=== PATIENT | female | born 2000 | race Hispanic/Latino ===

== ENCOUNTER 2022-06-07 20:39 | Emergency (ER) | payer OTHER ==
--- OUTSIDE RECORDS SUMMARY | 2022-06-07 20:43 | XMS REPORT | Continuity of Care Document ---
:2000 Author Organization [facility] t Address [address] [place] [address] Care Team Providers Name Role Phone LEN MARCELO Primary Care Physician Unavailable MICKEY SHEN Attending Clinician Unavailable DOTTY GARCIA Attending Clinician Unavailable Dotty Rinaldi Attending Clinician [phone] [facility] Attending Clinician Unavailable Martin Mesa DO Attending Clinician Madelaine Pickett Attending Clinician MADELAINE DANIELS Attending Clinician Unavailable 1, [facility] Room Attending Clinician Unavailable AUTUMN BURT Attending Clinician Unavailable Wali, Ricky Herman [facility] Attending Clinician Unavailable Autumn Burt MD Attending Clinician [phone] [facility] [place] Attending Clinician Unavailable NATE RENDON Attending Clinician Unavailable NATE RENDON Attending Clinician Unavailable JulietaNate mosher DO Attending Clinician EUGENIA RAGLAND Attending Clinician Unavailable MALIK MARTINEZ Attending Clinician Unavailable DEVON FONTANA Attending Clinician Unavailable DEVON FONTANA Attending Clinician Unavailable MERY_SELIN Attending Clinician Unavailable TREVIN BARR Attending Clinician Unavailable DEIRDRE TALBOT Attending Clinician Unavailable GKervin Attending Clinician Unavailable COOPER RODRIGUEZ Attending Clinician Unavailable WANDA ARORA Attending Clinician Unavailable LEXIE MEYER Attending Clinician Unavailable PATEL_SELIN Admitting Clinician Unavailable Rick_Pappanelli Admitting Clinician Unavailable Payers Payer Name Policy Type Policy Number Effective Date Expiration Date Nelli piña [place] [employer] [id number] 2022 00:00:00 [facility] [id number] 2016 CHILDREN'S STAR 00:00:00 (MEDICAID HMO) Problems Condition Condition Condition Status Onset Resolution Last Treating Co mments Source Name Details Category Date Date Treatment Clinician Date Obesity in Obesity in Disease Active 2021-05 U nivers 2-16 ity of 00:00: [address] Branch Supervisio Supervisio Disease Active 2021-05 U nivedelmira n of n of 0-31 ity of high-risk high-risk 00:[place]: [place] [facility] History of History of Disease Active 2021-05 U nivers miscarriag miscarriag it y of e e 00:00: [place] [facility] History of History of Disease Active 2021-05 U nivers asthma asthma ity of 00:00: [place] [facility] History of History of Disease Active 2021-05 Overview : Univers Cornelius de Cornelius de Formattin i ty of la la 00:00: g of this [place] Tourette's Tourette's 00 note Me dical syndrome syndrome might be Bran ch different from the original. Not on meds History of History of Disease Active 2021-05 Overview : Univers migraine migraine Formattin ity of 00:00: g of this [place] note Medical might be Branch different from the original. Not on meds History of History of Disease Active 2021-05 Overview : Univers anxiety anxiety Formattin ity o f 00:00: g of this [place] note Medical might be Branch different from the original. Not on meds History of History of Disease Active 2021-05 Overview : Univers depression depression Formattin ity of 00:00: g of this [place] note Medical might be Branch different from the original. 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 [facility] Asthma Asthma Problem Active [place] 2-03 da [facility] Attention Attention Problem Active [place] deficit Deficit 1-25 da hyperactiv Hyperactiv 00:00: [facility] ity 00 al disorder Disorder Health Outre[facility] Mixed Mixed Problem Active [place] anxiety Anxiety 8-10 da and and 00:00: [facility] depressive Depressive 00 al disorder Disorder Health Outreac [facility] Program Swelling, Swelling, Disease Active Uni vers mass, or mass, or 3-20 ity of lump in lump in 00:00: [place] head and head and 00 Medica l neck neck Branch Allergies, Adverse Reactions, Alerts Allergy Allergy Status Severity Reaction(s) Onset Inactive Treating Comm ents Source Name Type Date Date Clinician ASPIRIN DRUG Active High Other-Cmnt Unive rs INGREDI 5- ity of 00:00: [place] 00 Medical Branch PENICILL DRUG Active Med ITCHING Univers IN INGREDI 09-28 ity of 00:00: [place] 00 Medical Branch Aspirin Propensi Active Other - See Family is Univers ty to comments 09-28 highly ity of adverse 00:00: allergic [place] reaction 00 Medical s Branch Penicill Propensi Active Itching Unive rs in ty to 09-28 ity of adverse 00:00: [place] reaction Medical s Branch LATEX DRUG Active Rash Univers INGREDI 08-27 ity of 00:00: [place] 00 Medical Branch Latex Propensi Active Rash UNKNOWN-- Unive rs ty to 08-27 (mother ity of adverse 00:00: has [place] reaction 00 history Medical s of latex Branch allergy and is concerned about child) AMOXICIL DRUG Active ITCHING Univers TONIE INGREDI 3-20 ity of 00:00: [place] 00 Medical Branch AMOXICIL DRUG Active ITCHING Univers TONIE-POT 3-20 ity of CLAVULAN 00:00: [place] ATE 00 Medical Branch Amoxicil Propensi Active Itching Unive rs tonie ty to 3-20 ity of adverse 00:00: [place] reaction 00 Medical s Branch Amoxicil Propensi Active Itching Unive rs tonie-Pot ty to 3-20 ity of Clavulan adverse 00:00: [place] ate reaction 00 Medical s Branch Social History Social Habit Start Date Stop Date Quantity Comments Source ASSERTION 2022-02-19 [place] of 00:00:00 [facility] Branch Exposure to 2022-05-02 2022-05-12 Not sure [facility] SARS-CoV-2 00:00:00 14:57:00 [place] [facility] (event) Branch Alcohol intake 2022-05-12 2022-05-12 Ex-drinker [facility] 00:00:00 00:00:00 (finding) [facility] Tobacco use and 2020-09-28 2020-09-28 Smokeless tobacco Un iversity of exposure 00:00:00 00:00:00 non-user [facility] Sex Assigned At [birth year] Universit y of 00:00:00 00:00:00 [facility] Smoking Status Start Date Stop Date Source Never smoked tobacco [facility] Medications Ordered Filled Start Stop Current Ordering Indication Dosage Frequency Signature Comments Components Source Medication Medication Date Date Medication? Clinician (SIG) Name Name SarahAlisa 2021-05 Yes [id number] 25mg Take 1 Univers e 25 mg 1-21 tablet by ity of tablet 00:00: mouth [place] 00 every 6 Medical (six) Branch hours as needed for Nausea and Vomiting (N/V). budesonide- 2021-05 Yes [id number] 2 puffs q Univers formoteroL 1-21 103 20 minutes ity of 80-4.5 00:00: for acute [place] mcg/actuati 00 exacerbati Me dical on inhaler on for max Bra nch of 6 puffs; seek medical care if no improvemen t in symptoms albuterol 2021-05 Yes [id number] 2{puff} Inhale 2 Univers 90 1-21 103 Puffs ity of mcg/actuati 00:00: every 6 [place] as on inhaler 00 (six) Medical hours as Branch needed for Wheezing or Shortness of Breath. proMETHazin 2021-05 Yes [id number] 25mg Take 1 Univers e 25 mg 1-21 tablet by ity of tablet 00:00: mouth [place] 00 every 6 Medical (six) Branch hours as needed for Nausea and Vomiting (N/V). budesonide- 2021-05 Yes [id number] 2 puffs q Univers formoteroL 1-21 103 20 minutes ity of 80-4.5 00:00: for acute [place] mcg/actuati 00 exacerbati Me dical on inhaler on for max Bra nch of 6 puffs; seek medical care if no improvemen t in symptoms albuterol 2021-05 Yes [id number] 2{puff} Inhale 2 Univers 90 1-21 103 Puffs ity of mcg/actuati 00:00: every 6 [place] as on inhaler 00 (six) Medical hours as Branch needed for Wheezing or Shortness of Breath. proMETHazin 2021-05 Yes [id number] 25mg Take 1 Univers e 25 mg 1-21 tablet by ity of tablet 00:00: mouth [place] 00 every 6 Medical (six) Branch hours as needed for Nausea and Vomiting (N/V). budesonide- 2021-05 Yes [id number] 2 puffs q Univers formoteroL 1-21 103 20 minutes ity of 80-4.5 00:00: for acute [place] mcg/actuati 00 exacerbati Me dical on inhaler on for max Bra nch of 6 puffs; seek medical care if no improvemen t in symptoms albuterol 2021-05 Yes [id number] 2{puff} Inhale 2 Univers 90 1-21 103 Puffs ity of mcg/actuati 00:00: every 6 [place] as on inhaler 00 (six) Medical hours as Branch needed for Wheezing or Shortness of Breath. proMETHazin 2021-05 Yes [id number] 25mg Take 1 Univers e 25 mg 1-21 tablet by ity of tablet 00:00: mouth [place] 00 every 6 Medical (six) Branch hours as needed for Nausea and Vomiting (N/V). budesonide- 2021-05 Yes [id number] 2 puffs q Univers formoteroL 1-21 103 20 minutes ity of 80-4.5 00:00: for acute [place] mcg/actuati 00 exacerbati Me dical on inhaler on for max Bra nch of 6 puffs; seek medical care if no improvemen t in symptoms albuterol 2021-05 Yes [id number] 2{puff} Inhale 2 Univers 90 1-21 103 Puffs ity of mcg/actuati 00:00: every 6 [place] as on inhaler 00 (six) Medical hours as Branch needed for Wheezing or Shortness of Breath. proMETHazin 2021-05 Yes [id number] 25mg Take 1 Univers e 25 mg 1-21 tablet by ity of tablet 00:00: mouth [place] 00 every 6 Medical (six) Branch hours as needed for Nausea and Vomiting (N/V). budesonide- 2021-05 Yes [id number] 2 puffs q Univers formoteroL 1-21 103 20 minutes ity of 80-4.5 00:00: for acute [place] mcg/actuati 00 exacerbati Me dical on inhaler on for max Bra nch of 6 puffs; seek medical care if no improvemen t in symptoms albuterol 2021-05 Yes [id number] 2{puff} Inhale 2 Univers 90 1-21 103 Puffs ity of mcg/actuati 00:00: every 6 [place] as on inhaler 00 (six) Medical hours as Branch needed for Wheezing or Shortness of Breath. proMETHazin 2021-05 Yes [id number] 25mg Take 1 Univers e 25 mg 1-21 tablet by ity of tablet 00:00: mouth [place] 00 every 6 Medical (six) Branch hours as needed for Nausea and Vomiting (N/V). budesonide- 2021-05 Yes [id number] 2 puffs q Univers formoteroL 1-21 103 20 minutes ity of 80-4.5 00:00: for acute [place] mcg/actuati 00 exacerbati Me dical on inhaler on for max Bra nch of 6 puffs; seek medical care if no improvemen t in symptoms albuterol 2021-05 Yes [id number] 2{puff} Inhale 2 Univers 90 1-21 103 Puffs ity of mcg/actuati 00:00: every 6 [place] as on inhaler 00 (six) Medical hours as Branch needed for Wheezing or Shortness of Breath. proMETHazin 2021-05 Yes [id number] 25mg Take 1 Univers e 25 mg 1-21 tablet by ity of tablet 00:00: mouth [place] 00 every 6 Medical (six) Branch hours as needed for Nausea and Vomiting (N/V). budesonide- 2021-05 Yes [id number] 2 puffs q Univers formoteroL 1-21 103 20 minutes ity of 80-4.5 00:00: for acute [place] mcg/actuati 00 exacerbati Me dical on inhaler on for max Bra nch of 6 puffs; seek medical care if no improvemen t in symptoms albuterol 2021-05 Yes [id number] 2{puff} Inhale 2 Univers 90 1-21 103 Puffs ity of mcg/actuati 00:00: every 6 [place] as on inhaler 00 (six) Medical hours as Branch needed for Wheezing or Shortness of Breath. proMETHazin 2021-05 Yes [id number] 25mg Take 1 Univers e 25 mg 1-21 tablet by ity of tablet 00:00: mouth [place] 00 every 6 Medical (six) Branch hours as needed for Nausea and Vomiting (N/V). budesonide- 2021-05 Yes [id number] 2 puffs q Univers formoteroL 1-21 103 20 minutes ity of 80-4.5 00:00: for acute [place] mcg/actuati 00 exacerbati Me dical on inhaler on for max Bra nch of 6 puffs; seek medical care if no improvemen t in symptoms albuterol 2021-05 Yes [id number] 2{puff} Inhale 2 Univers 90 1-21 103 Puffs ity of mcg/actuati 00:00: every 6 [place] as on inhaler 00 (six) Medical hours as Branch needed for Wheezing or Shortness of Breath. GUMMI BEAR 2021-05- No Take by Uni vers MULTIVITAMI 0-31 10-31 mouth. ity o f N ORAL 14:57: 00:00 [place] 48 :00 Medical Branch GUMMI BEAR 2021-05- No Take by Uni vers MULTIVITAMI 0-31 10-31 mouth. ity o f N ORAL 14:57: 00:00 [place] 48 :00 Medical Branch GUMMI BEAR 2021-05- No Take by Uni vers MULTIVITAMI 0-31 10-31 mouth. ity o f N ORAL 14:57: 00:00 [place] 48 :00 Medical Branch GUMMI BEAR 2021-05- No Take by Uni vers MULTIVITAMI 0-31 10-31 mouth. ity o f N ORAL 14:57: 00:00 [place] 48 :00 Medical Branch Guanfacine 2021-05- No Take by Uni vers (INTUNIV) 3 0-31 10-31 mouth. ity o f mg Tb24 14:57: 00:00 [place] 45 :00 Medical Branch Guanfacine 2021-05- No Take by Uni vers (INTUNIV) 3 0-31 10-31 mouth. ity o f mg Tb24 14:57: 00:00 [place] 45 :00 Medical Branch Guanfacine 2021-05- No Take by Uni vers (INTUNIV) 3 0-31 10-31 mouth. ity o f mg Tb24 14:57: 00:00 [place] 45 :00 Medical Branch Guanfacine 2021-05- No Take by Uni vers (INTUNIV) 3 0-31 10-31 mouth. ity o f mg Tb24 14:57: 00:00 [place] 45 :00 Medical Branch LACTOBAC 2021-05- No Take [address] [facility] CMB 0-31 10-31 mouth. ity of #3/FOS/PANT 14:57: 00:00 [place] ETHINE 39 :00 Medical (PROBIOTIC Branch & ACIDOPHILUS ORAL) LACTOBAC 2021-05- [facility] CMB 0-[facility] 10-31 mouth. ity of #3/FOS/PANT 14:57: 00:00 [place] ETHINE 39 :00 Medical (PROBIOTIC Branch & ACIDOPHILUS ORAL) LACTOBAC 2021-05- No Take by [facility] CMB 0-31 10-31 mouth. ity of #3/FOS/PANT 14:57: 00:00 [place] ETHINE 39 :00 Medical (PROBIOTIC Branch & ACIDOPHILUS ORAL) LACTOBAC 2021-05- No Take by [facility] CMB 0-31 10-31 mouth. ity of #3/FOS/PANT 14:57: 00:00 [place] ETHINE 39 :00 Medical (PROBIOTIC Branch & ACIDOPHILUS ORAL) dextroamphe 2021-05- No 10mg Take 10 mg Univers tamine-amph 0-31 10-31 by mouth ity of etamine 20 14:57: 00:00 [place] mg tablet 33 :00 morning. Medica l Branch dextroamphe 2021-05- No 10mg Take 10 mg Univers tamine-amph 0-31 10-31 by mouth ity of etamine 20 14:57: 00:00 [place] mg tablet 33 :00 morning. Medica l Branch dextroamphe 2021-05- No 10mg Take 10 mg Univers tamine-amph 0-31 10-31 by mouth ity of etamine 20 14:57: 00:00 [place] mg tablet 33 :00 morning. Medica l Branch dextroamphe 2021-05- No 10mg Take 10 mg Univers tamine-amph 0-31 10-31 by mouth ity of etamine 20 14:57: 00:00 [place] mg tablet 33 :00 morning. Medica l Branch albuterol 2021-05- No 2{puff} Inhale 2 Univers (PROAIR 0-31 10-31 Puffs ity of HFA) 90 14:57: 00:00 every 6 [place] mcg/actuati 05 :00 (six) Medical on inhaler hours as Branc h needed for Wheezing or Shortness of Breath. albuterol 2021-05- No 2{puff} Inhale 2 Univers (PROAIR 0-31 10-31 Puffs ity of HFA) 90 14:57: 00:00 every 6 [place] mcg/actuati 05 :00 (six) Medical on inhaler hours as Branc h needed for Wheezing or Shortness of Breath. albuterol 2021-05- No 2{puff} Inhale 2 Univers (PROAIR 0-31 10-31 Puffs ity of HFA) 90 14:57: 00:00 every 6 [place] mcg/actuati 05 :00 (six) Medical on inhaler hours as Branc h needed for Wheezing or Shortness of Breath. albuterol 2021-05- No 2{puff} Inhale 2 Univers (PROAIR 0-31 10-31 Puffs ity of HFA) 90 14:57: 00:00 every 6 [place] mcg/actuati 05 :00 (six) Medical on inhaler hours as Branc h needed for Wheezing or Shortness of Breath. PNV 67-iron 2021-05 Yes [id number] 1{each} Take 1 Univers ps-folate 0-31 Each by ity of no.1-dha 00:00: mouth [place] (VITAFOL 00 daily. Medical ULTRA) 29 Branch mg iron- 1 mg-200 mg Cap PNV 67-iron 2021-05 Yes [id number] 1{each} Take 1 Univers ps-folate 0-31 Each by ity of no.1-dha 00:00: mouth [place] (VITAFOL 00 daily. Medical ULTRA) 29 Branch mg iron- 1 mg-200 mg Cap PNV 67-iron 2021-05 Yes [id number] 1{each} Take 1 Univers ps-folate 0-31 Each by ity of no.1-dha 00:00: mouth [place] (VITAFOL 00 daily. Medical ULTRA) 29 Branch mg iron- 1 mg-200 mg Cap PNV 67-iron 2021-05 Yes [id number] 1{each} Take 1 Univers ps-folate 0-31 Each by ity of no.1-dha 00:00: mouth [place] (VITAFOL 00 daily. Medical ULTRA) 29 Branch mg iron- 1 mg-200 mg Cap PNV 67-iron 2021-05 Yes [id number] 1{each} Take 1 Univers ps-folate 0-31 Each by ity of no.1-dha 00:00: mouth [place] (VITAFOL 00 daily. Medical ULTRA) 29 Branch mg iron- 1 mg-200 mg Cap PNV 67-iron 2021-05 Yes [id number] 1{each} Take 1 Univers ps-folate 0-31 Each by ity of no.1-dha 00:00: mouth [place] (VITAFOL 00 daily. Medical ULTRA) 29 Branch mg iron- 1 mg-200 mg Cap PNV 67-iron 2021-05 Yes [id number] 1{each} Take 1 Univers ps-folate 0-31 Each by ity of no.1-dha 00:00: mouth [place] (VITAFOL 00 daily. Medical ULTRA) 29 Branch mg iron- 1 mg-200 mg Cap PNV 67-iron 2021-05 Yes [id number] 1{each} Take 1 Univers ps-folate 0-31 Each by ity of no.1-dha 00:00: mouth [place] (VITAFOL 00 daily. Medical ULTRA) 29 Branch mg iron- 1 mg-200 mg Cap PNV 67-iron 2021-05 Yes [id number] 1{each} Take 1 Univers ps-folate 0-31 Each by ity of no.1-dha 00:00: mouth [place] (VITAFOL 00 daily. Medical ULTRA) 29 Branch mg iron- 1 mg-200 mg Cap PNV 67-iron 2021-05 Yes [id number] 1{each} Take 1 Univers ps-folate 0-31 Each by ity of no.1-dha 00:00: mouth [place] (VITAFOL 00 daily. Medical ULTRA) 29 Branch mg iron- 1 mg-200 mg Cap PNV 67-iron 2021-05 Yes [id number] 1{each} Take 1 Univers ps-folate 0-31 Each by ity of no.1-dha 00:00: mouth [place] (VITAFOL 00 daily. Medical ULTRA) 29 Branch mg iron- 1 mg-200 mg Cap PNV 67-iron 2021-05 Yes [id number] 1{each} Take 1 Univers ps-folate 0-31 Each by ity of no.1-dha 00:00: mouth [place] (VITAFOL 00 daily. Medical ULTRA) 29 Branch mg iron- 1 mg-200 mg Cap PNV 67-iron 2021-05 Yes [id number] 1{each} Take 1 Univers ps-folate 0-31 Each by ity of no.1-dha 00:00: mouth [place] (VITAFOL 00 daily. Medical ULTRA) 29 Branch mg iron- 1 mg-200 mg Cap Fluticasone 2020-0 Yes 1{puff} Inhale 1 Univers -Salmeterol 5-04 Puff every it y of (ADVAIR 09:14: 12 [place] DISKUS) 01 (twelve) Medical 100-50 hours. Branch mcg/dose inhalation disk Fluticasone 2020-0 Yes 1{puff} Inhale 1 Univers -Salmeterol 5-04 Puff every it y of (ADVAIR 09:14: 12 [place] DISKUS) 01 (twelve) Medical 100-50 hours. Branch mcg/dose inhalation disk Fluticasone 2020-0 Yes 1{puff} Inhale 1 Univers -Salmeterol 5-04 Puff every it y of (ADVAIR 09:14: 12 [place] DISKUS) 01 (twelve) Medical 100-50 hours. Branch mcg/dose inhalation disk Fluticasone 2020-0 Yes 1{puff} Inhale 1 Univers -Salmeterol 5-04 Puff every it y of (ADVAIR 09:14: 12 [place] DISKUS) 01 (twelve) Medical 100-50 hours. Branch mcg/dose inhalation disk Fluticasone 2020-0 Yes 1{puff} Inhale 1 Univers -Salmeterol 5-04 Puff every it y of (ADVAIR 09:14: 12 [place] DISKUS) 01 (twelve) Medical 100-50 hours. Branch mcg/dose inhalation disk Fluticasone 2020-0 Yes 1{puff} Inhale 1 Univers -Salmeterol 5-04 Puff every it y of (ADVAIR 09:14: 12 [place] DISKUS) 01 (twelve) Medical 100-50 hours. Branch mcg/dose inhalation disk Fluticasone 2020-0 Yes 1{puff} Inhale 1 Univers -Salmeterol 5-04 Puff every it y of (ADVAIR 09:14: 12 [place] DISKUS) 01 (twelve) Medical 100-50 hours. Branch mcg/dose inhalation disk Fluticasone 1-0 Yes 1{puff} Inhale 1 Univers -Salmeterol 5-04 Puff every it y of (ADVAIR 09:14: 12 [place] DISKUS) 01 (twelve) Medical 100-50 hours. Branch mcg/dose inhalation disk Fluticasone 2020-0 Yes 1{puff} Inhale 1 Univers -Salmeterol 5-04 Puff every it y of (ADVAIR 09:14: 12 [place] DISKUS) 01 (twelve) Medical 100-50 hours. Branch mcg/dose inhalation disk Fluticasone 2020-0 Yes 1{puff} Inhale 1 Univers -Salmeterol 5-04 Puff every it y of (ADVAIR 09:14: 12 [place] DISKUS) 01 (twelve) Medical 100-50 hours. Branch mcg/dose inhalation disk Fluticasone 2020-0 Yes 1{puff} Inhale 1 Univers -Salmeterol 5-04 Puff every it y of (ADVAIR 09:14: 12 [place] DISKUS) 01 (twelve) Medical 100-50 hours. Branch mcg/dose inhalation disk Fluticasone 2020-0 Yes 1{puff} Inhale 1 Univers -Salmeterol 5-04 Puff every it y of (ADVAIR 09:14: 12 [place] DISKUS) 01 (twelve) Medical 100-50 hours. Branch mcg/dose inhalation disk Fluticasone 2020-0 Yes 1{puff} Inhale 1 Univers -Salmeterol 5-04 Puff every it y of (ADVAIR 09:14: 12 [place] DISKUS) 01 (twelve) Medical 100-50 hours. Branch mcg/dose inhalation disk Fluticasone 2020-0 Yes 1{puff} Inhale 1 Univers -Salmeterol 5-04 Puff every it y of (ADVAIR 09:14: 12 [place] DISKUS) 01 (twelve) Medical 100-50 hours. Branch mcg/dose inhalation disk GUMMI BEAR 2020-0 Yes Take by [facility] ers MULTIVITAMI 5-04 mouth. ity of N ORAL 09:14: [place] 01 Medical Branch dextroamphe 0 Yes 20mg Take 20 mg Univers tamine-amph 5-04 by mouth ity of etamine 09:11: daily. [place] (ADDERALL) 47 Medical 20 mg Branch tablet SUMAtriptan Yes [id number] 50mg Take 1 Univers 50 mg 5-04 tablet by ity of tablet 00:00: mouth as [place] 00 needed for Medical Migraine. Branch SUMAtriptan 2021- No [id number] 50mg Take 1 Univers 50 mg 5-04 10-31 tablet by ity of tablet 00:00: 00:00 mouth as [place] 00 :00 needed for Medical Migraine. Branch SUMAtriptan 2021- No [id number] 50mg Take 1 Univers 50 mg 5-04 10-31 tablet by ity of tablet 00:00: 00:00 mouth as [place] 00 :00 needed for Medical Migraine. Branch SUMAtriptan 2021- No [id number] 50mg Take 1 Univers 50 mg 5-04 10-31 tablet by ity of tablet 00:00: 00:00 mouth as [place] 00 :00 needed for Medical Migraine. Branch SUMAtriptan 2021- No [id number] 50mg Take 1 Univers 50 mg 5-04 10-31 tablet by ity of tablet 00:00: 00:00 mouth as [place] 00 :00 needed for Medical Migraine. Branch cyproheptad Yes TAKE 2 Univ ers ine 4 mg 4-13 TABLETS BY ity o f tablet 00:00: MOUTH [place] 00 EVERY DAY Medical AT BEDTIME Branch cyproheptad 2021- No TAKE 2 Uni vers ine 4 mg 4-13 10-31 TABLETS BY ity of tablet 00:00: 00:00 MOUTH [place] 00 :00 EVERY DAY Medical AT BEDTIME Branch cyproheptad 2021- No TAKE 2 Uni vers ine 4 mg 4-13 10-31 TABLETS BY ity of tablet 00:00: 00:00 MOUTH [place] 00 :00 EVERY DAY Medical AT BEDTIME Branch cyproheptad 2021- No TAKE 2 Uni vers ine 4 mg 4-13 10-31 TABLETS BY ity of tablet 00:00: 00:00 MOUTH [place] 00 :00 EVERY DAY Medical AT BEDTIME Branch cyproheptad 2021- No TAKE 2 Uni vers ine 4 mg 4-13 10-31 TABLETS BY ity of tablet 00:00: 00:00 MOUTH [place] 00 :00 EVERY DAY Medical AT BEDTIME Branch FLUoxetine Yes TAKE 1 Unive rs 10 mg 09-03 CAPSULE(S) ity of capsule 00:00: EVERY DAY [place] 00 BY ORAL Medical ROUTE WITH Branch MEALS FOR 30 DAYS. guanFACINE Yes GIVE 1 TAB U nivers 1 mg tablet 09-03 BY MOUTH 3 it y of 00:00: TIMES [place] 00 DAILY. Medical Branch FLUoxetine 2021- No TAKE 1 Univ ers 10 mg 09-03 CAPSULE(S) ity of capsule 00:00: 00:00 [place] 00 :00 BY ORAL Medical ROUTE WITH Branch MEALS FOR 30 DAYS. guanFACINE 2021- No GIVE 1 TAB Univers 1 mg tablet 09-03 BY MOUTH 3 i ty of 00:00: 00:00 TIMES [place] 00 :00 DAILY. Medical Branch FLUoxetine 2021- No TAKE 1 Univ ers 10 mg 09-03 CAPSULE(S) ity of capsule 00:00: 00:00 EVERY [place] 00 :00 BY ORAL Medical ROUTE WITH Branch MEALS FOR 30 DAYS. guanFACINE 2021- No GIVE 1 TAB Univers 1 mg tablet 09-03 BY MOUTH 3 i ty of 00:00: 00:00 TIMES [place] 00 :00 DAILY. Medical Branch FLUoxetine 2021- No TAKE 1 Univ ers 10 mg 09-03 CAPSULE(S) ity of capsule 00:00: 00:00 EVERY DAY [place] 00 :00 BY ORAL Medical ROUTE WITH Branch MEALS FOR 30 DAYS. guanFACINE 2021- No GIVE 1 TAB Univers 1 mg tablet 09-03 BY MOUTH 3 i ty of 00:00: 00:00 TIMES [place] 00 :00 DAILY. Medical Branch FLUoxetine 2021- No TAKE 1 Univ ers 10 mg 09-03 CAPSULE(S) ity of capsule 00:00: 00:00 EVERY DAY [place] 00 :00 BY ORAL Medical ROUTE WITH Branch MEALS FOR 30 DAYS. guanFACINE 2021- No GIVE 1 TAB Univers 1 mg tablet 09-03 BY MOUTH 3 i ty of 00:00: 00:00 TIMES [place] 00 :00 DAILY. Medical Branch hydrOXYzine Yes TAKE 1 Univ ers 50 mg 1-23 CAPSULE BY ity of capsule 00:00: MOUTH [place] 00 EVERYDAY Medical AT BEDTIME Branch hydrOXYzine 2021- No TAKE 1 Uni vers 50 mg 1-23 10-31 CAPSULE BY ity of capsule 00:00: 00:00 MOUTH [place] 00 :00 EVERYDAY Medical AT BEDTIME Branch hydrOXYzine 2021- No TAKE 1 Uni vers 50 mg 1-23 10-31 CAPSULE BY ity of capsule 00:00: 00:00 MOUTH [place] 00 :00 EVERYDAY Medical AT BEDTIME Branch hydrOXYzine 2021- No TAKE 1 Uni vers 50 mg 1-23 10-31 CAPSULE BY ity of capsule 00:00: 00:00 MOUTH [place] 00 :00 EVERYDAY Medical AT BEDTIME Branch hydrOXYzine 2021- No TAKE 1 Uni vers 50 mg 1-23 10-31 CAPSULE BY ity of capsule 00:00: 00:00 MOUTH [place] 00 :00 EVERYDAY Medical AT BEDTIME Branch LACTOBAC Yes Take by [facility] CMB 5-21 mouth. ity of #3/FOS/PANT 15:18: [place] ETHINE 46 Medical (PROBIOTIC Branch & ACIDOPHILUS ORAL) mometasone Yes 1{spray Use 1 Uni vers (NASONEX) 5-21 } [place] in ity of 50 15:18: each [place] mcg/actuati 45 nostril. Medi rey on nasal Branch spray mometasone Yes 1{spray Use 1 Uni vers (NASONEX) 5-21 } [place] in ity of 50 15:18: each [place] mcg/actuati 45 nostril. Medi rey on nasal Branch spray mometasone Yes 1{spray Use 1 Uni vers (NASONEX) 5-21 } [place] in ity of 50 15:18: each [place] mcg/actuati 45 nostril. Medi rey on nasal Branch spray mometasone Yes 1{spray Use 1 Uni vers (NASONEX) 5-21 } [place] in ity of 50 15:18: each [place] mcg/actuati 45 nostril. Medi rey on nasal Branch spray mometasone Yes 1{spray Use 1 Uni vers (NASONEX) 5-21 } [place] ity of 50 15:18: each [place] mcg/actuati 45 nostril. Medi rey on nasal Branch spray mometasone 2014- Yes 1{spray Use 1 Uni vers (NASONEX) 5-21 } [place] in ity of 50 15:18: each [place] mcg/actuati 45 nostril. Medi rey on nasal Branch spray mometasone 0 Yes 1{spray Use 1 Uni vers (NASONEX) 5-21 } [place] ity of 50 15:18: each [place] mcg/actuati 45 nostril. Medi rey on nasal Branch spray mometasone Yes 1{spray Use 1 Uni vers (NASONEX) 5-21 } [place] in ity of 50 15:18: each [place] mcg/actuati 45 nostril. Medi rey on nasal Branch spray mometasone Yes 1{spray Use 1 Uni vers (NASONEX) 5-21 } [place] in ity of 50 15:18: each [place] mcg/actuati 45 nostril. Medi rey on nasal Branch spray mometasone Yes 1{spray Use 1 Uni vers (NASONEX) 5-21 } [place] ity of 50 15:18: each [place] mcg/actuati 45 nostril. Medi rey on nasal Branch spray mometasone Yes 1{spray Use 1 Uni vers (NASONEX) 5-21 } [place] in ity of 50 15:18: each [place] mcg/actuati 45 nostril. Medi rey on nasal Branch spray mometasone Yes 1{spray Use 1 Uni vers (NASONEX) 5-21 } [place] in ity of 50 15:18: each [place] mcg/actuati 45 nostril. Medi rey on nasal Branch spray mometasone 0 Yes 1{spray Use 1 Uni vers (NASONEX) 5-21 } [place] in ity of 50 15:18: each [place] mcg/actuati 45 nostril. Medi rey on nasal Branch spray Guanfacine Yes Take by [facility] ers (INTUNIV) 3 5-21 mouth. ity of mg Tb24 15:18: [place] 45 Medical Branch albuterol Yes 2{puff} Inhale 2 U nivers (PROAIR 5-21 Puffs ity of HFA) 90 15:18: every 6 [place] mcg/actuati 45 (six) Medical on inhaler hours as Branc h needed for Wheezing or Shortness of Breath. mometasone 2015-0 Yes 1{spray Use 1 Uni vers (NASONEX) 5-21 } [place] in ity of 50 15:18: each [place] mcg/actuati 45 nostril. Medi rey on nasal Branch spray airial mis airial mis No airial mis [place] compact compact compact da [facility] ProAir HFA ProAir HFA No ProAir HFA [place] 90 90 90 da mcg/actuati mcg/actuati mcg/actuat [facility] on aerosol on aerosol ion al inhaler inhaler aerosol Health INHALE 2 INHALE 2 inhaler Outr eac PUFF BY PUFF BY INHALE 2 h INHALATION INHALATION PUFF BY Program ROUTE EVERY ROUTE EVERY INHALATION 4 6 HOURS 4 6 HOURS ROUTE EVERY 4 6 HOURS Prozac 20 Prozac 20 No 1capsul Q1D Prozac 20 [place] mg capsule mg capsule e(s) mg capsule da Take 1 Take 1 Take 1 [facility] capsule capsule capsule al every day every day every day Health by oral by oral by oral Outrea c route in route in route in h the morning the morning the P rogram for 30 for 30 morning days. days. for 30 days. sumatriptan sumatriptan No sumatripta [place] 50 mg 50 mg n 50 mg da tablet tablet tablet [facility] airial airial No airial [place] nebulizer nebulizer nebulizer da system system system [facility] [id number] USE [id number] USE [id number] USE al DIRECTED DIRECT[facility] Outre[facility] Program cyproheptad cyproheptad No cyprohepta [place] ine 4 mg ine 4 mg dine 4 mg da tablet TAKE tablet TAKE tablet [facility] 2 TABLETS 2 TABLETS TAKE 2 al BY MOUTH BY MOUTH TABLETS BY H ealt EVERY DAY EVERY DAY MOUTH Outr eac AT BEDTIME AT BEDTIME EVERY DAY h AT BEDTIME Program dextroamphe dextroamphe No dextroamph [place] tamine-amph tamine-amph etamine-am da etamine 10 etamine 10 phetamine [facility] mg tablet mg tablet 10 mg al TAKE 1 TAKE 1 tablet Health TABLET BY TABLET BY TAKE 1 Out reac MOUTH EVERY MOUTH EVERY TABLET BY h MORNING MORNING MOUTH Program LUNCH AND LUNCH AND EVERY 4PM 4PM MORNING LUNCH AND 4PM dextroamphe dextroamphe No dextroamph [place] tamine-amph tamine-amph etamine-am da etamine 5 etamine 5 phetamine [facility] mg tablet mg tablet 5 mg al TAKE 1 TAKE 1 tablet Health TABLET BY TABLET BY TAKE 1 Out reac MOUTH EVERY MOUTH EVERY TABLET BY h MORNING MORNING MOUTH Program LUNCH AND LUNCH AND EVERY 4PM 4PM MORNING LUNCH AND 4PM fluoxetine fluoxetine No fluoxetine [place] 10 mg 10 mg 10 mg da capsule capsule capsule [facility] TAKE 1 TAKE 1 TAKE 1 al CAPSULE(S) CAPSULE(S) CAPSULE(S) Health EVERY DAY EVERY DAY EVERY DAY Outreac BY ORAL BY ORAL BY ORAL h ROUTE WITH ROUTE WITH ROUTE WITH Program MEALS FOR MEALS FOR MEALS FOR 30 DAYS. 30 DAYS. 30 DAYS. guanfacine guanfacine No guanfacine [place] 1 mg tablet 1 mg tablet 1 mg d a GIVE 1 TAB GIVE 1 TAB tablet E [facility] BY MOUTH 3 BY MOUTH 3 GIVE 1 TAB al TIMES TIMES BY MOUTH 3 Health DAILY. DAILY. TIMES Outreac DAILY. h Program hydroxyzine hydroxyzine No hydroxyzin [place] pamoate 50 pamoate 50 e pamoate da mg capsule mg capsule 50 mg Ep [facility] TAKE 1 TAKE 1 capsule al CAPSULE BY CAPSULE BY TAKE 1 H ealth MOUTH MOUTH CAPSULE BY Outreac EVERYDAY AT EVERYDAY AT MOUTH h BEDTIME BEDTIME EVERYDAY Progr am AT BEDTIME loratadine loratadine No loratadine [place] 10 mg 10 mg 10 mg da tablet tablet tablet [facility] Vital Signs Vital Name Observation Time Observation Value Comments Source Systolic blood 2022-05-12 20:58:00 108 mm[Hg] [facility] Diastolic blood 2022-05-12 20:58:00 64 mm[Hg] [facility] Heart rate 2022-05-12 20:58:00 71 /min [facility] Body temperature 2022-05-12 20:58:00 36.61 [facility] Respiratory rate 2022-05-12 20:58:00 18 /[facility] Body height 2022-05-12 20:58:00 165.1 cm [facility] Body weight 2022-05-12 20:58:00 90.918 kg [facility] [place] [facility] BMI 2022-05-12 20:58:00 33.35 kg/m2 [facility] [place] [facility] Systolic blood 2022-04-14 22:19:00 104 mm[Hg] [facility] [place] [facility] Diastolic blood 2022-04-14 22:19:00 61 mm[Hg] Unive rsity of pressure [place] [facility] Heart rate 2022-04-14 22:19:00 75 /min [facility] [place] [facility] Body temperature 2022-04-14 22:19:00 36.61 Kimberly [facility] [place] [facility] Respiratory rate 2022-04-14 22:19:00 18 /min [facility] [place] [facility] Body height 2022-04-14 22:19:00 165.1 cm [facility] [place] [facility] Body weight 2022-04-14 22:19:00 95.397 kg [facility] [place] [facility] BMI 2022-04-14 22:19:00 35.00 kg/m2 [facility] [place] [facility] Systolic blood 2022-03-27 19:49:00 85 mm[Hg] [facility] [place] [facility] Diastolic blood 2022-03-27 19:49:00 58 mm[Hg] [facility]ive rs[facility] pressure [place] [facility] Heart rate 2022-03-27 19:49:00 73 /min [facility] [place] [facility] Body temperature 2022-03-27 19:49:00 36.56 Kimberly [facility] [place] [facility] Respiratory rate 2022-03-27 19:49:00 18 /min [facility] [place] [facility] Body height 2022-03-27 19:49:00 165.1 cm [facility] [place] [facility] Body weight 2022-03-27 19:49:00 97.183 kg [facility] [place] [facility] BMI 2022-03-27 19:49:00 35.65 kg/m2 [facility] [place] [facility] Systolic blood 2022-03-24 22:17:00 122 mm[Hg] [facility] [place] [facility] Diastolic blood 2022-03-24 22:17:00 52 mm[Hg] Unive rsity of pressure [place] [facility] Heart rate 2022-03-24 22:17:00 86 /min [facility] Body temperature 2022-03-24 22:17:00 36.94 Kimberly [facility] Res[facility] rate 2022-03-24 22:17:00 14 /min [facility] Body height 2022-03-24 22:17:00 165.1 cm [facility] Body weight 2022-03-24 22:17:00 102.059 kg [facility] BMI 2022-03-24 22:17:00 37.44 kg/m2 [facility] Oxygen saturation in 2022-03-24 22:17:00 99 /min [facility] Arterial blood by [facility] Pulse oximetry Branch BP Diastolic 2020-06-30 00:00:00 71 mm[Hg] [place] [facility] Height 2020-06-30 00:00:00 65 [in_i] [place] [facility] BMI (Body Mass 2020-06-30 00:00:00 37.3 kg/m2 [facility] 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) [facility] BP Systolic 2020-06-30 00:00:00 110 mm[Hg] [place] [facility] Body Weight 2020-06-30 00:00:00 224.2 [lb_av] [place] [facility] Procedures Procedure Date / Time Performed Performing Clinician Gracie e POCT URINALYSIS 2022-05-12 20:59:00 Dotty Garcia [facility] FIRST TRIMESTER 2022-04-28 19:58:00 Dotty Garcia [facility] POCT URINALYSIS 2022-04-14 22:27:00 Dotty Garcia [facility] POCT TEST 2022-03-27 19:42:00 Dotty Garcia [facility] POCT URINALYSIS W/O 2022-03-27 19:42:00 Dotty Garcia [facility] [place] SPECIFIC GRAVITY [facility] CONSENT/REFUSAL FOR 2022-03-24 22:11:02 Doctor Unassigned, No [facility] [place] DIAGNOSIS AND Name Medical Branch TREATMENT unlisted imaging order 2020-06-23 00:00:00 Mary marin [facility] Encounters Start End Encounter Admission Attending Care Care Encounter Source Date/Time Date/Time Type Type Clinicians Facility Department ID 2022-06-26 2022-06-26 Outpatient P [facility] [id number] Univers 14:45:00 14:45:00 ity of [facility] 2022-06-09 2022-06-09 Outpatient R RADHA, [facility] [id number] Univers 14:00:00 14:00:00 DOTTY mohser [facility] 2022-05-12 2022-05-12 Outpatient R RADHA, [facility] [id number] Univers 14:45:00 15:13:07 DOTTY mosher f [facility] 2022-05-12 2022-05-12 Routine Radha, [facility] [id number] Univers 14:45:00 15:13:07 Dotty Nascimento INSTRUCTIONAL DESIGN SPECIALIST 350.1.13.10 ity of Visit REGIONAL 4.2.7.2.686 [place] as MATERNAL [id number] [facility] & CHILD [address] [place] [address] 2022-04-28 2022-04-28 [facility] [id number]. [id number] Univers 15:00:00 15:15:00 Visit Martin Mesa INSTRUCTIONAL DESIGN SPECIALIST 350.1.13.10 ity of Madelaine Daniels REGIONAL 4.2.7.2.686 [place] MATERNAL [id number] Med ical & CHILD 125 [facility] 2022-04-28 2022-04-28 Outpatient R JEREMIAH [facility] [id number] Univers 15:00:00 15:00:00 MADELAINE menard [facility] 2022-04-28 2022-04-28 Manager Hospice 1[facility] 1.2. [id number] Univers 13:30:00 14:31:19 Visit Martin [place] INSTRUCTIONAL DESIGN SPECIALIST 350.1.13.10 ity of REGIONAL 4.2.7.2.686 [place] as MATERNAL [id number] [facility] ical & CHILD 369 [facility] 2022-04-28 2022-04-28 Outpatient P [facility] [id number] Univers 10:30:00 10:30:00 ity of [facility] 2022-04-28 2022-04-28 [facility] [id number] Univers 00:00:00 00:00:00 Dotty C INSTRUCTIONAL DESIGN SPECIALIST 350.1.13.10 ity of REGIONAL 4.2.7.2.686 [place] MATERNAL [id number] [facility] & CHILD [address] [place] [address] 2022-04-17 2022-04-17 Outpatient R LENNY [facility] [id number] Univers 09:30:00 14:48:07 RADHA it y of S, LEYVA [facility] 2022-04-17 2022-04-17 Telemedici Faculty, [facility] [id number] Univers 09:30:00 14:48:07 ne Visit Lenny Ruvalcabamango Leyva INSTRUCTIONAL DESIGN SPECIALIST 350.1 .13.10 ity of REGIONAL 4.2.7.2.686 [place] MATERNAL [id number] [address] 2022-04-14 2022-04-14 Outpatient R RADHA [facility] [id number] Univers 16:00:00 16:35:54 DOTTY ity o f [facility] 2022-04-14 2022-04-14 Routine Radha, [facility] [id number] Univers 16:00:00 16:35:54 Dotty C INSTRUCTIONAL DESIGN SPECIALIST 350.1.13.10 ity of Visit REGIONAL 4.2.7.2.686 [place] MATERNAL [id number] [facility] & CHILD [address] [place] [address] 2022-03-27 2022-03-27 [facility] [id number] Univers 15:00:00 15:42:44 DOTTY taylor o derian [facility] 2022-03-27 2022-03-27 [facility] [id number] Univers 15:00:00 15:42:44 Dotty Azam INSTRUCTIONAL DESIGN SPECIALIST 350.1.13.10 ity of [facility] 4.2.7.2.686 [place] as MATERNAL [id number] [facility] ical & CHILD [address] [place] [address] 2022-03-27 2022-03-27 Outpatient R RADHA, [facility] [id number] Univers 15:00:00 15:00:00 DOTTY mosher [facility] 2022-03-27 2022-03-27 Outpatient R RADHA, [facility] [id number] Univers 14:30:00 14:30:00 DOTTY taylor o [facility] 2022-03-24 2022-03-24 Emergency X NATE RENDON [facility] ERT 1 [id number] Univers 17:20:00 17:52:00 JULIETANATE Mosher [facility] 2022-03-24 2022-03-[address] [facility] 1.2.030.850 [id number] Univers 17:20:00 17:52:00 [facility] 350.1.13.10 ity [facility] 4.2.7.2.686 [facility] [id number] [address] 2022-03-11 2022-03-11 emergency [id number] 14:19:00 15:27:00 [id number] 2022-03-11 2022-03-11 Emergency ER RAGLAND, [facility] [id number] [place] 14:19:00 15:27:00 EUGENIA [id number] Critical access hospital 2021-11-04 2021-11-04 Emergency ER MICHELLE, [facility] [id number] [place] 21:56:00 23:40:00 KYLEJOANNA -[id number] Critical access hospital 2020-11-16 2020-11-16 Outpatient MICKEY KULKARNI [facility] [id number] Univers 10:00:00 10:00:00 [facility] 2020-09-28 2020-09-28 Outpatient DEVON MURPHY [facility] [id number] Univers 08:40:00 08:40:00 DEVON FONTANA [facility] 2020-07-02 2020-07-02 Outpatient PATEL_NILES [facility] [id number] [place] 04:33:00 04:33:00 H [id number] da [facility] 2020-07-02 2020-07-02 Pau [facility] [place] - [id number] [place] 00:00:00 00:00:00 Cristian Madden, [facility] COMMISSIONING MANAGER: 1700 [facility] [phone] Jessy angelo , Ph. ([phone]) 2020-06-30 2020-06-30 Outpatient PATEL_NILES NCHOP [facility] 109 [id number] [place] 04:12:00 04:12:00 H [id number] da [facility] 2020-06-30 2020-06-30 Deirdre [facility] [place] - [id number] [place] 00:00:00 00:00:00 Zee Bergman MD: [facility] E[facility]op [id number] [facility] - [address], [place], [place] [address] , Ph. 2020-06-29 2020-06-29 Outpatient PATEL_NILES NCHOP [facility] 109 [id number] [place] 12:00:00 12:00:00 H [id number] [facility] 2020-06-28 2020-06-28 Emergency ER TREVIN BARR [facility] [id number] [place] 08:33:00 11:09:00 -[id number] Critical access hospital 2020-06-24 2020-06-24 Outpatient SHAMA TALBOT, [facility] [id number] [place] 18:10:00 18:10:00 DEIRDRE -[id number] Critical access hospital 2020-06-24 2020-06-24 Outpatient G_Pappas MM[facility] MMG [id number] [place] 01:16:00 01:16:00 0128 Medical Group 2020-06-22 2020-06-22 Outpatient PATEL_NILES [facility] [id number] [place] 03:53:00 03:53:00 H [id number] [facility] 2020-06-19 2020-06-19 Outpatient PATEL_NILES [facility] 109 [id number] [place] 12:00:00 12:00:00 H [id number] [facility] 2020-06-19 2020-06-19 Selin Thao [place] - [id number] [place] 00:00:00 00:00:00 MD Mery: Cynthia meneses 1700 [facility] Juan Manuel [facility] [address] h , Ph. Program (390) --20072020-06-08 2020-06-08 Outpatient PATEL_NILES NCHOP [facility] 109 [id number] [place] 12:18:00 12:18:00 H [id number] [facility] 2020-06-07 2020-06-07 Outpatient PATEL_NILES NCHOP [facility] 109 [id number] [place] 05:34:00 05:34:00 H [id number] [facility] 2020-06-07 2020-06-07 Pau [place] - [id number] M [place] 00:00:00 00:00:00 Cristian Madden, [facility] COMMISSIONING MANAGER: 1700 [facility] [address] [facility] , Ph. ([phone]) --20072020-05-27 2020-05-27 Outpatient PATEL_KEZIAS [facility] [id number] [place] 09:23:00 09:23:00 H [id number] [facility] 2020-05-26 2020-05-26 Outpatient PATEL_RACHEL [facility] 109 [id number] [place] 05:00:00 05:00:00 H [id number] [facility] 2020-05-25 2020-05-25 Outpatient PATEL_RACHEL [facility] 109 [id number] [place] 03:17:00 03:17:00 H [id number] [facility] 2020-05-24 2020-05-24 Outpatient PATEL_RACHEL [facility] 109 [id number] [place] 04:11:00 04:11:00 H [id number] [facility] 2020-05-24 2020-05-24 Pau [place] - [id number] M [place] 00:00:00 00:00:00 Cristian Madden, [facility] COMMISSIONING MANAGER: 1700 [facility] [address] Jessy angelo , Ph. ([phone]) --20072020-04-10 2020-04-10 Outpatient PATEL_RACHEL [facility] [id number] [place] 12:08:00 12:08:00 H [id number] [facility] 2020-04-10 2020-04-10 Selin Thao [facility] [place] - [id number] [place] 00:00:00 00:00:00 MD Mery: Cynthia meneses 1700 [facility] Zambrano [facility] - [facility] [address] h , Ph. Program ([phone]) --20072020-02-09 2020-02-09 Outpatient PATEL_NILES [facility] [id number] [place] 05:37:00 05:37:00 H [id number] [facility] 2020-02-09 2020-02-09 Pau [place] - [id number] M [place] 00:00:00 00:00:00 Cristian Marie da Merry, [facility] COMMISSIONING MANAGER: 1700 [facility] ia [facility] [address] [facility] am , Ph. ([phone]) --20072020-02-06 2020-02-06 Outpatient PATEL_RACHEL ANNE [facility] 109 [id number] [place] 03:43:00 03:43:00 H [id number] [facility] 2020-02-06 2020-02-06 Pau [place] - [id number] M [place] 00:00:00 00:00:00 Cristian Madden, [facility] COMMISSIONING MANAGER: 1700 [facility] ia [facility]ano [facility] [address] [facility] am , Ph. ([phone]) --20072020-02-05 2020-02-05 Outpatient PATEL_RACHEL ANNE [facility] 109 [id number] [place] 03:44:00 03:44:00 H [id number] [facility] 2020-01-26 2020-01-26 Outpatient PATEL_RACHEL ANNE [facility] 109 [id number] [place] 05:55:00 05:55:00 H [id number] [facility] 2020-01-26 2020-01-26 Pau [place] - [id number] M [place] 00:00:00 00:00:00 Cristian Madden, [facility] COMMISSIONING MANAGER: 1700 [facility] [place] [address] [facility] am , Ph. ([phone]) -2020-01-24 2020-01-24 Outpatient PATEL_RACHEL ANNE [facility] 109 [id number] [place] 10:39:00 10:39:00 H [id number] [facility] 2020-01-24 2020-01-24 [facility] [place] - [id number] [place] 00:00:00 00:00:00 White, MD: Cynthia meneses 1700 [facility] Zam[place]ano [facility] [address] h , Ph. Program ([phone]) -20072020-01-12 2020-01-12 Outpatient PATEL_NILENelli LAYNEHOP MEHOP 109 [id number] [place] 04:07:00 04:07:00 H [id number] [facility] 2020-01-12 2020-01-12 Pau [place] - [id number] [place] 00:00:00 00:00:00 Cristian Madden, [facility] COMMISSIONING MANAGER: 1700 HOP - NCHOP al [place] [facility] [address] Jessy , Ph. ([phone]) --20072020-01-06 2020-01-06 Outpatient PATEL_NILES HOP N[facility]OP 109 [id number] [place] 10:57:00 10:57:00 H [id number] [facility] 2020-01-05 2020-01-05 Outpatient PATEL_RACHEL LAYNEHOP NCHOP 109 [id number] [place] 05:29:00 05:29:00 H [id number] [facility] 2020-01-05 2020-01-05 Pau [place] - [id number] [place] 00:00:00 00:00:00 Cristian Madden, [facility] COMMISSIONING MANAGER: 1700 HOP - NCHOP [facility] [address] [facility] am , Ph. ([phone]) -20072020-01-03 2020-01-03 Outpatient PATEL_NILES HOP N[facility] 109 [id number] [place] 12:12:00 12:12:00 H [id number] [facility] 2020-01-03 2020-01-03 Selin J [facility] [place] - [id number] [place] 00:00:00 00:00:00 MD Mery: Cynthia meneses 1700 [facility] [address] h , Ph. Program (643) --20072019-12-08 2019-12-08 Outpatient GIA NCFLETCHER [facility] [id number] [place] 05:56:00 05:56:00 H [id number] [facility] 2009-05-03 2009-05-03 Emergency ER COOPER RODRIGUEZ [facility] [id number] [place] 17:45:00 19:10:00 -[id number] Critical access hospital 2008-07-09 2008-07-09 Emergency ER ARAVIND-CAM [facility] [id number] [place] 08:05:00 10:01:00 RADHA, -[id number] [facility] 2003-12-29 2003-12-30 Emergency ER UGENRIQUE, [facility] [id number] [place] 19:27:00 00:30:00 CLEMENT -[id number] Critical access hospital Results Test Description Test Time Test Comments Results Result Comments Source POCT URINALYSIS W SPECIFIC GRAVITY 2022-05-12 20:59:00 Test Item Value Reference Range Interpretation Comme nts POCT U SP GRAV (test code = 3255) . 1.005-1.025 POCT PH U (test code = 3254) . 5-8 POCT U LEUK EST (test code = 3263) . Negative - Negative POCT U NIT (test code = 3262) . Negative - Negative POCT U PROT (test code = 3259) Trace Negative - Negative POCT U GLU (test code = 3256) Neg Negative - Negative POCT U KETONE (test code = 3258) . Negative - Negative POCT U UROBILI (test code = 3260) . 0.2-1 POCT U BILI (test code = 3261) . Negative - Negative POCT U BLD (test code = 3257) . Negative - Negative POCT U COLOR (test code = 3266) . POCT U APPEAR (test code = 3267) [facility] SPECIFIC [id number] 22:27:00 Test Item Value Reference Range Interpretation Comments POCT U SP GRAV (test code = 3255) . 1.005-1.025 POCT PH U (test code = 3254) . 5-8 POCT U LEUK EST (test code = 3263) . Negative - Negative POCT U NIT (test code = 3262) . Negative - Negative POCT U PROT (test code = 3259) Trace Negative - Negative POCT U GLU (test code = 3256) Neg Negative - Negative POCT U KETONE (test code = 3258) . Negative - Negative POCT U UROBILI (test code = 3260) . 0.2-1 POCT U BILI (test code = 3261) . Negative - Negative POCT U BLD (test code = 3257) . Negative - Negative POCT U COLOR (test code = 3266) . POCT U APPEAR (test code = 3267) .. [facility] URINALYSIS W/O SPECIFIC [id number] 19:42:00 Test Item Value Reference Range Interpretation Comments POCT PH U (test code = 3254) 6 mg/dl 5-8 POCT U LEUK EST (test code = 2+ Negative - Negative 3263) POCT U NIT (test code = 3262) Neg Negative - Negative POCT U PROT (test code = 3259) Trace Negative - Negative POCT U GLU (test code = 3256) Neg Negative - Negative POCT U KETONE (test code = 3258) None Negative - Negative POCT U BLD (test code = 3257) Large Negative - Negative [facility] [id number] 19:42:00 Test Item Value Reference Range Interpretation Comments POCT PREG (test code = 1605) Positive On board controls acceptable with C Yes Line (test code = 3574) POCT PREG LOT # (test code = 3575) POCT PREG TEST DATE (test code = 3576) [facility] URINALYSIS W/O SPECIFIC [id number] 19:42:00 Test Item Value Reference Range Interpretation Comments POCT PH U (test code = 3254) 6 mg/dl 5-8 POCT U LEUK EST (test code = 2+ Negative - Negative 3263) POCT U NIT (test code = 3262) Neg Negative - Negative POCT U PROT (test code = 3259) Trace Negative - Negative POCT U GLU (test code = 3256) Neg Negative - Negative POCT U KETONE (test code = 3258) None Negative - Negative POCT U BLD (test code = 3257) Large Negative - Negative [facility] [id number] 19:42:00 Test Item Value Reference Range Interpretation Comments POCT PREG (test code = 1605) Positive On board controls acceptable with C Yes Line (test code = 3574) POCT PREG LOT # (test code = 3575) POCT PREG TEST DATE (test code = 3576) [facility] URINALYSIS W/O SPECIFIC [id number] 19:42:00 Test Item Value Reference Range Interpretation Comments POCT PH U (test code = 3254) 6 mg/dl 5-8 POCT U LEUK EST (test code = 2+ Negative - Negative 3263) POCT U NIT (test code = 3262) Neg Negative - Negative POCT U PROT (test code = 3259) Trace Negative - Negative POCT U GLU (test code = 3256) Neg Negative - Negative POCT U KETONE (test code = 3258) None Negative - Negative POCT U BLD (test code = 3257) Large Negative - Negative [facility] [id number] 19:42:00 Test Item Value Reference Range Interpretation Comments POCT PREG (test code = 1605) Positive On board controls acceptable with C Yes Line (test code = 3574) POCT PREG LOT # (test code = 3575) POCT PREG TEST DATE (test code = 3576) [facility] URINALYSIS W/O SPECIFIC [id number] 19:42:00 Test Item Value Reference Range Interpretation Comments POCT PH U (test code = 3254) 6 mg/dl 5-8 POCT U LEUK EST (test code = 2+ Negative - Negative 3263) POCT U NIT (test code = 3262) Neg Negative - Negative POCT U PROT (test code = 3259) Trace Negative - Negative POCT U GLU (test code = 3256) Neg Negative - Negative POCT U KETONE (test code = 3258) None Negative - Negative POCT U BLD (test code = 3257) Large Negative - Negative [facility] [id number] 19:42:00 Test Item Value Reference Range Interpretation Comments POCT PREG (test code = 1605) Positive On board controls acceptable with C Yes Line (test code = 3574) POCT PREG LOT # (test code = 3575) POCT PREG TEST DATE (test code = 3576) [facility] BranchChoriogonadotropin.beta subunit [Units/volume] in Serum or [id number] 00:00:00 Test Item Value Reference Range Interpretation Comments Choriogonadotropin.beta subunit 3 mIU/mL [Units/volume] in Serum or Plasma (test code = 73403-5) [facility] ProgramChoriogonadotropin.beta subunit [Units/volume] in Serum or [id number] 00:00:00 Test Item Value Reference Range Interpretation Comments Choriogonadotropin.beta subunit 33 mIU/mL H [Units/volume] in Serum or Plasma (test code = 39518-6) [facility] [Units/volume] in Serum or [id number] 00:00:00 Test Item Value Reference Range Interpretation Comments HCG, quantitative (test code = 963 mIU/mL see below HCG, quantitative) [facility] ProgramABO and Rh group [Type] in Blood 2020-07-01 00:00:00 Test Item Value Reference Range Interpretation Comments blood type and Rh (test code = O positive blood type and Rh) [facility] [Units/volume] in Serum or [id number] 00:00:00 Test Item Value Reference Range Interpretation Comments HCG, quantitative (test code = 963 mIU/mL see below HCG, quantitative) [facility] ProgramABO and Rh group [Type] in Blood 2020-07-01 00:00:00 Test Item Value Reference Range Interpretation Comments blood type and Rh (test code = O positive blood type and Rh) [facility]
[2022-06-08 00:04] LABS: Urine Blood Negative (Negative); Urine Glucose Negative (Negative); Urine Protein Negative (Negative); Urine Specific Gravity 1.025 (1.005-1.030); Urine pH 6.5 (5.0-7.0)
[2022-06-08 00:38] LABS: Urine Bacteria None Seen /HPF (<20); Urine Mucus 1+ /HPF (None Seen); Urine RBC 21-50 /HPF (None Seen)
[2022-06-08 00:44] LABS: Urine Specific Gravity/Preg 1.025 (1.005-1.030)
--- NOTE | 2022-06-08 00:50 | ER ---
Nurse's Notes [facility] Name: Jad Pierce Age: 22 yrs Sex: Female : 2000 Arrival Date: 06/07/2022 Time: 20:41 Bed 12 Private MD: Diagnosis: Other specified related conditions, second trimester-cramping Presentation: 06/07 21:52 Chief complaint: Patient states: "It has been going on for a bit. A lot of cramping. It tw5 it worrying me because I had a miscarriage with the first one. I was 12 weeks last time.". Coronavirus screen: Vaccine status: Patient reports receiving the 2nd dose of the covid vaccine. TASCET. Ebola Screen: Patient negative for fever greater than or equal to 101.5 degrees Fahrenheit, and additional compatible Ebola Virus Disease symptoms Patient denies exposure to infectious person. Patient denies travel to an Ebola-affected area in the 21 days before illness onset. Initial Sepsis Screen: Does the patient meet any 2 criteria? No. Patient's initial sepsis screen is negative. Does the patient have a suspected source of infection? No. Patient's initial sepsis screen is negative. Risk Assessment: Do you want to hurt yourself or someone else? Patient reports no desire to harm self or others. Onset of symptoms is unknown. 21:52 Method Of Arrival: Ambulatory tw5 21:52 Acuity: TATYANA 3 tw5 Triage Assessment: 21:54 General: Appears in no apparent distress. Behavior is calm, cooperative, appropriate tw5 for age. Pain: Pain currently is 4 out of 10 on a pain scale. GI: Reports lower abdominal pain. 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 - Social history:: Smoking status: Patient denies any tobacco usage or history of. Screenin:56 [facility] Fall Risk Assessment (Adult) History of falling in the last 3 months, tw5 including since admission. Abuse screen: Denies threats or abuse. Denies injuries from another. Nutritional screening: No deficits noted. Tuberculosis screening: No symptoms or risk factors identified. Assessment: 06/08 00:07 General: Appears in no apparent distress. Behavior is calm, cooperative, appropriate tw5 for age. 00:08 GI: Bowel sounds present X 4 quads. Abd is soft X 4 quads. tw5 Vital Signs: 06/07 21:52 BP 101 / 49; Pulse 68; Resp 18; Temp 97.6; Pulse Ox 95% on R/A; Weight 95.25 kg; Height tw5 5 ft. 5 in. (165.10 cm); Pain 4/10; 06/08 00:07 Pulse 61; Resp 18; tw5 06/07 21:52 Body Mass Index 34.95 (95.25 kg, 165.10 cm) tw5 Vitals: 00:07 Heart Tones 176 bpm. tw5 ED Course: 06/07 20:41 Patient arrived in ED. as 20:46 Eugene Flanagan NP is PHCP. pm1 20:46 Rosendo Barlow MD is Attending Physician. pm1 21:54 Triage completed. tw5 21:55 Arm band placed on Patient notified of wait time. tw5 21:56 Patient has correct armband on for positive identification. tw5 06/08 00:07 Cyndy Jordan is Primary Nurse. tw5 00:07 No provider procedures requiring assistance completed. Patient did not have IV access tw5 during this emergency room visit. 00:27 Urine Microscopic Only Sent. tw5 00:27 Urine --Ancillary (enter results) Sent. tw5 Administered Medications: No medications were administered Medication: 06/07 21:56 VIS not applicable for this client. tw5 Outcome: 06/08 00:08 Discharged to home ambulatory. tw5 Condition: stable 00:50 Discharge ordered by . pm1 01:01 Discharge instructions given to patient, Instructed on discharge instructions, follow tw5 up and referral plans. Demonstrated understanding of instructions, follow-up care. 01:01 Patient left the ED. tw5 Signatures: Shannan Montague as Eugene Flanagan NP SHOP WORKER pm1 Cyndy Jordan tw5
--- NOTE | 2022-06-08 00:50 | EDPHYS ---
Physician Documentation [facility] Name: Jad Pierce Age: 22 yrs Sex: Female : 2000 Arrival Date: 06/07/2022 Time: 20:41 Bed 12 Private MD: ED Physician Rosendo Barlow HPI: 06/07 22:01 This 22 yrs old Female presents to ER via Ambulatory with complaints of pm1 Abdominal Cramping - 17 wks preg. 22:01 The patient presents to the emergency department with abdominal pain, of the suprapubic pm1 area, that started 7 day(s) ago, described as crampy. The estimated gestational age is 17 weeks. course: care: at a clinic, Leakage of Fluid: none appreciated, Ultrasound: the patient had an ultrasound, which was normal. Associated signs and symptoms: The patient has no apparent associated signs or symptoms, Pertinent negatives: dysuria, nausea, vaginal bleeding, vaginal discharge, vomiting. The patient has experienced a previous episode, With prior at 12 weeks, spontaneous . 22-year-old female presents to the ER with complaints of occasional abdominal cramping to suprapubic area at 17 weeks . Patient concerned cramping is indication of possible miscarriage that happened when she was 12 weeks in the past. 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 - Social history:: Smoking status: Patient denies any tobacco usage or history of. ROS: 22:01 Constitutional: Negative for fever, chills, and weight loss, Cardiovascular: Negative pm1 for chest pain, palpitations, and edema, Respiratory: Negative for shortness of breath, cough, wheezing, and pleuritic chest pain. 22:01 Back: Negative for injury and pain, : Negative for injury, bleeding, discharge, and swelling, MS/Extremity: Negative for injury and deformity, Skin: Negative for injury, rash, and discoloration, Neuro: Negative for headache, weakness, numbness, tingling, and seizure. 22:01 Abdomen/GI: Positive for abdominal cramps, of the suprapubic area, Negative for nausea, vomiting, and diarrhea. 22:01 All other systems are negative. Exam: 22:01 Constitutional: This is a well developed, well nourished patient who is awake, alert, pm1 and in no acute distress. Head/Face: Normocephalic, atraumatic. 22:01 Back: No spinal tenderness. No costovertebral tenderness. Full range of motion. Skin: Warm, dry with normal turgor. Normal color with no rashes, no lesions, and no evidence of cellulitis. MS/ Extremity: Pulses equal, no cyanosis. Neurovascular intact. Full, normal range of motion. 22:01 Cardiovascular: Exam negative for acute changes, Rate: normal, Rhythm: regular, Pulses: no pulse deficits are appreciated. 22:01 Respiratory: Exam negative for acute changes, respiratory distress, shortness of breath. 22:01 Abdomen/GI: Exam negative for acute changes, Inspection: gravid appearance, is noted, Palpation: abdomen is soft and non-tender, in all quadrants. 22:01 Neuro: Exam negative for acute changes, Orientation: is normal, Mentation: is normal, Motor: is normal, moves all fours. Vital Signs: 21:52 BP 101 / 49; Pulse 68; Resp 18; Temp 97.6; Pulse Ox 95% on R/A; Weight 95.25 kg; Height tw5 5 ft. 5 in. (165.10 cm); Pain 4/10; 06/08 00:07 Pulse 61; Resp 18; tw5 06/07 21:52 Body Mass Index 34.95 (95.25 kg, 165.10 cm) tw5 MDM: 06/07 22:01 Patient medically screened. pm1 22:01 ED course: Offered patient ultrasound, but patient refused. Will perform pm1 heart tones in urine sample. Plan for bedside ultrasound once patient is in a bed. 22:01 Differential diagnosis: cramping, round ligament pain, UTI. pm1 06/08 00:34 ED course: Patient refused bedside ultrasound. Patient reports she is happy with pm1 heart tones. 00:48 Data reviewed: vital signs. pm1 00:48 Counseling: I had a detailed discussion with the patient and/or guardian regarding: the pm1 historical points, exam findings, and any diagnostic results supporting the discharge/admit diagnosis, lab results, the need for outpatient follow up, an OB/Gyne specialist, to return to the emergency department if symptoms worsen or persist or if there are any questions or concerns that arise at home. 06/07 22:01 Order name: Urine Microscopic Only; Complete Time: 00:48 pm1 06/08 00:04 Order name: Urine Dipstick-Ancillary; Complete Time: 00:06 EDMS 06/07 22:01 Order name: Urine Dipstick-Ancillary (obtain specimen); Complete Time: 00:27 pm1 06/07 22:01 Order name: FHT's; Complete Time: 00:10 pm1 06/08 00:12 Order name: Urine --Ancillary (enter results); Complete Time: 00:48 wm Administered Medications: No medications were administered Disposition: 03:09 Co-signature as Attending Physician, Rosendo Barlow MD. rn 03:10 I reviewed the patient's care provided by the Advanced Practice Provider and agree with rn the diagnosis and treatment plan. Disposition Summary: 06/08/22 00:50 Discharge Ordered Location: Home pm1 Problem: new pm1 Symptoms: have improved pm1 Condition: Stable pm1 Diagnosis - Other specified related conditions, second trimester - cramping pm1 Followup: pm1 - With: Emergency Department - When: As needed - Reason: Worsening of condition Followup: pm1 - With: Private Physician - When: 2 - 3 days - Reason: Recheck today's complaints, Continuance of care, Re-evaluation by your physician Discharge Instructions: - Discharge Summary Sheet pm1 - Abdominal Pain During pm1 Forms: - Medication Reconciliation Form pm1 - Thank You Letter pm1 - Antibiotic Education pm1 - Family Work Release pm1 - Prescription Opioid Use pm1 Signatures: Dispatcher [employer] Rosendo Belle MD MD rn Marinas, Patrick, JOHN DATA MANAGEMENT ANALYST pm1 Cyndy Jordan tw5
[2022-06-08 01:07] VITALS: BP 101/49; TEMP 97.6; O2SAT 95
== END 2022-06-08 01:01 | disposition home or self-care (01) ==
LOC: ER 20:39
DX: O26.892 Other specified pregnancy related conditions, second trimester (principal); Z3A.14 14 weeks gestation of pregnancy; Z88.0 Allergy status to penicillin
CPT/HCPCS: 81003; 81015; 81025; 99283